=== PATIENT | female | born 1985 | race Caucasian/White ===

== ENCOUNTER → 2017-08-06 | Outpatient (CLI) | payer BC ==
--- NOTE | 2017-08-06 16:37 | MG ---
Examination: Bilateral diagnostic mammogram and left breast ultrasound. Clinical history: Palpable areas of concern in the upper outer aspect of the left breast. Technique: Multiple digital images of both breasts were obtained. Targeted left breast ultrasound was also obtained evaluating the upper outer aspect of the left breast. Comparison: None available. Baseline mammogram. Findings: The breasts are composed of scattered fibroglandular densities. No mammographic abnormality is evident in the area of palpable concern in the upper outer aspect of t he left breast. No suspicious mass, area of architectural distortion or suspicious cluster of microcalcifications is noted. Targeted left breast ultrasound evaluating the upper outer aspect of the left breast reveals a lobula r solid appearing hypoechoic mass measuring 0.9 x 0.5 cm in size seen at the 2 o'clock position, whic h has no obvious mammographic correlate. The mass probably represents a small intramammary lymph node or a benign fibroadenoma. A followup left diagnostic mammogram and left breast ultrasound is recomme nded in 6 months to ensure stability of this finding. Impression: 1. Probably benign finding in the left breast, as described above. BI-RADS category 3/III (THREE) - PROBABLY BENIGN FINDING; SHORT INTERVAL FOLLOW-UP SUGGESTED. Recommend a followup left diagnostic mammogram and left breast ultrasound in 6 months to ensure stabi lity of the findings in the left breast. Diagnostic CAD was utilized and reviewed. * 0 (ZERO) - ASSESSMENT INCOMPLETE; ADDITIONAL IMAGING IS NEEDED. * 0C - ASSESSMENT INCOMPLETE, NEEDS ADDITIONAL IMAGING EVALUATION AND/OR PRIOR MAMMOGRAMS FOR COMPARI SON. * 1/1 (ONE) - NEGATIVE. * 2/II (TWO) - BENIGN FINDINGS. * 3/III (THREE) - PROBABLY BENIGN FINDING; SHORT INTERVAL FOLLOW-UP SUGGESTED. * 4/IV (FOUR) - SUSPICIOUS ABNORMALITY; BIOPSY SHOULD BE CONSIDERED. * 5/V - HIGHLY SUSPICIOUS OF MALIGNANCY; BIOPSY SHOULD BE PERFORMED. * 6/ - KNOWN BIOPSY PROVEN MALIGNANCY-APPROPRIATE ACTION SHOULD BE TAKEN. A NEGATIVE X-RAY REPORT SHOULD NOT DELAY BIOPSY IF A DOMINANT OR CLINICALLY SUSPICIOUS MASS IS PRESENT; 4 TO 8 PERCENT OF CANCERS ARE NOT IDENTIFIED BY X-RAY. A NEGATIVE REPORT MAY REINFORCE THE CLINICAL IMPRESSION. ADENOSIS AND DENSE BREASTS MAY OBSCURE AN UNDERLYING NEOPLASM. Reported By:
== END ==
LOC: RAD 13:30
PROVIDERS: ATTEND Internal Medicine
DX: N60.12 Diffuse cystic mastopathy of left breast (principal)
CPT/HCPCS: 76642; 77066